=== PATIENT | male | born 1955 | race Caucasian/White ===

== ENCOUNTER 2018-01-07 02:44 | Emergency (ER) | payer BC ==
[~2018-01-07] VITALS: Ht 160 cm; Wt 68.7 kg
[2018-01-07 02:50] VITALS: Ht 160 cm; Wt 68.7 kg
[2018-01-07 03:36] LABS: BASOPHIL % 0.6 % (0-2); PLATELET COUNT 352 x10^3mcL (130-400); RED CELL DISTRIBUTION WIDTH 13.2 % (11.5-14.5)
[2018-01-07 03:53] LABS: CALCIUM 9.1 mg/dL (8.5-10.1); CARBON DIOXIDE 27.5 mmol/L (21-32); CHLORIDE SERUM 104 mmol/L (98-107); GFR1 > 60 mL/min; GLUCOSE SERUM 128 mg/dL (74-106); POTASSIUM SERUM 3.9 mmol/L (3.5-5.1); SODIUM SERUM 142 mmol/L (136-145)
[2018-01-07 03:57] LABS: ALBUMIN 3.9 g/dL (3.4-5.0); ALKALINE PHOSPHATASE 77 U/L (46-116); ALT/SGPT 27 U/L (16-63); AMYLASE 45 U/L (25-115); AST/SGOT 22 U/L (15-37); BILIRUBIN TOTAL 0.53 mg/dL (0.20-1.00); LIPASE 195 IU/L (73-393); TOTAL PROTEIN, SERUM 7.7 g/dL (6.4-8.2)
[2018-01-07 04:17] VITALS: BP 148/86
== END 2018-01-07 04:17 | disposition home or self-care (01) ==
LOC: ED 02:44
PROVIDERS: Emergency Medicine
DX: N13.2 Hydronephrosis with renal and ureteral calculous obstruction (principal)
CPT/HCPCS: J1885

== ENCOUNTER 2019-01-19 02:02 | Emergency (ER) | payer BC ==
[~2019-01-19] VITALS: Ht 165.1 cm; Wt 67.6 kg
[2019-01-19 02:04] VITALS: Ht 165.1 cm; Wt 67.6 kg
[2019-01-19 04:54] LABS: BASOPHIL % 0.2 % (0-2); PLATELET COUNT 368 x10^3mcL (130-400); RED CELL DISTRIBUTION WIDTH 13.1 % (11.5-14.5)
[2019-01-19 05:02] LABS: CALCIUM 9.5 mg/dL (8.5-10.1); CARBON DIOXIDE 26.8 mmol/L (21-32); CHLORIDE SERUM 105 mmol/L (98-107); CREATININE SERUM 0.9 mg/dL (0.7-1.3); GFR1 > 60 mL/min; GLUCOSE SERUM 161 mg/dL (74-106); POTASSIUM SERUM 4.2 mmol/L (3.5-5.1); SODIUM SERUM 141 mmol/L (136-145)
[2019-01-19 05:08] LABS: ALBUMIN 3.8 g/dL (3.4-5.0); ALKALINE PHOSPHATASE 63 U/L (46-116); ALT/SGPT 27 U/L (16-63); AST/SGOT 26 U/L (15-37); BILIRUBIN TOTAL 0.4 mg/dL (0.20-1.00); LIPASE 148 IU/L (73-393); TOTAL PROTEIN, SERUM 7.6 g/dL (6.4-8.2)
[2019-01-19 07:27] LABS: microscopic required? YES; urine erythrocyte 1+ (NEGATIVE)
[2019-01-19 07:58] VITALS: BP 142/80
== END 2019-01-19 07:58 | disposition home or self-care (01) ==
LOC: ED 02:02
DX: R10.31 Right lower quadrant pain (principal); N13.2 Hydronephrosis with renal and ureteral calculous obstruction; K57.30 Diverticulosis of large intestine without perforation or abscess without bleeding; K40.20 Bilateral inguinal hernia, without obstruction or gangrene, not specified as recurrent
CPT/HCPCS: J1885; J2405; J7030